=== PATIENT | male | born 1950 | race Caucasian/White ===

== ENCOUNTER 2021-04-06 18:37 | Emergency (ER) | payer MEDICARE, OTHER ==
[2021-04-06 20:35] LABS: BASOPHIL 0.5 % (0-2); EOSINOPHIL 1.2 % (0-7); HCT 39.5 % (42.0-52.0); HGB 14.1 g/dl (13.2-18.0); MCH 32.2 pg (25.0-31.0); MCHC 35.7 g/dL (32.0-36.0); MCV 90.2 fL (78.0-100.0); MONOCYTE 9.7 % (0-12); NEUTROPHIL 63.9 % (41-80); NRBC 0; PLT 159 K/uL (150-400); RBC 4.38 M/uL (4.70-6.00); RDW 12.4 % (11.5-14.0); WBC 4.1 K/uL (4.0-10.5)
[2021-04-06 20:57] LABS: ALBUMIN 3.6 g/dL (3.4-5.0); BILIRUBIN - DIRECT 0.1 mg/dL (0.00-0.20); BILIRUBIN - TOTAL 0.6 mg/dL (0.2-1.0); BUN/CREAT RATIO (CALC) 15.6 RATIO; CREATININE 1.09 mg/dL (0.67-1.17); GLOBULIN (CALCULATION) 3.3 g/dL; MAGNESIUM 2.2 mg/dL (1.8-2.4); POTASSIUM 3.5 mmol/L (3.5-5.1); TOTAL PROTEIN 6.9 g/dL (6.4-8.2)
[2021-04-06 20:58] LABS: LACTIC ACID 1.1 mmol/L (0.4-1.9)
[2021-04-06 22:37] LABS: BILIRUBIN NEGATIVE (NEGATIVE); BLOOD NEGATIVE Ery/uL (NEGATIVE); CLARITY CLEAR (CLEAR); COLOR YELLOW (YELLOW); GLUCOSE (U) NORMAL (NORMAL); LEUKOCYTES NEGATIVE Leu/uL (NEGATIVE); NITRITE NEGATIVE (NEGATIVE); PROTEIN NEGATIVE (NEGATIVE); SPECIFIC GRAVITY <=1.005 (1.001-1.030); UROBILINOGEN 0.2 mg/dL (0.2-1.0); pH 6.5 (5.0-9.0)
[2021-04-06] MEDS ORDERED: VENTOLIN HFA IN18 GM INH (23:18)
[2021-04-06] MEDS ORDERED: PULMICORT FLE180 MCG INH (23:18)
[2021-04-06] MEDS ORDERED: ZPAK PO (23:18)
[2021-04-06] MEDS ORDERED: BACLOFEN 10MG T10 MG PO (23:18)
== END 2021-04-06 23:39 | disposition home or self-care (01) ==
LOC: FER 18:37
PROVIDERS: Nurse Practitioner Family
DX: U07.1 COVID-19 (principal); J12.82 Pneumonia due to coronavirus disease 2019; M62.838 Other muscle spasm; I10 Essential (primary) hypertension; Z79.82 Long term (current) use of aspirin; Z88.8 Allergy status to other drugs, medicaments and biological substances
CPT/HCPCS: 36415; 36600; 71275; 80048; 80076; 81003; 82803; 83605; 83735; 83880; 84100; 84145; 84484; 85025; 85379; 87040; 93005; J1885; J2800; J2930; J7030; J7050; Q9967